=== PATIENT | male | born 1965 | race Caucasian/White ===

== ENCOUNTER 2019-04-19 12:25 | Emergency (ER) | payer BC ==
[2019-04-19 12:55] VITALS: BP 110/76
--- NOTE | 2019-04-19 13:15 | ER Report ---
History and Physical Time Seen By MD: 13:08 Hx. of Stated Complaint: PATIENT HAD MUCUS CYST IN THE LEFT LOWER LIP REMOVED 5 DAYS AGO. NOTICED THE STITCHES WERE NOT THERE AND THE WOUND IS OPEN AND LOOKS INFECTED. HPI/ROS CHIEF COMPLAINT: Open mouth HISTORY OF PRESENT ILLNESS: Patient is a 53-year-old male who is traveling from [place] originally he is from near [facility]. Earlier last week patient had surgery to remove a mucocele to his left lower lip. He had some dissolvable stitches placed and was doing well until today when he noticed the area seems to be somewhat inflamed and it appears that the stitches have fallen out. He has no purulent discharge in minimal pain. Tetanus shot was less than 5 years ago. He offers no other complaints. Allergies: Coded Allergies: No Known Drug Allergies (Unverified , 04/19/19) Home Meds Active Scripts Chlorhexidine Gluconate (Peridex) 0.12 % Mouthwash, 10 ML PO BID, #1 BOTTLE 0 Refills 10 mls by mouth, swish and spit twice per day for 7 days Prov:NIRU MELLO MD 04/19/19 Clindamycin Hcl (CLINDAMYCIN HCL) 300 Mg Capsule, 300 MG PO Q6H for 7 Days, #28 CAPSULE 0 Refills Prov:NIRU MELLO MD 04/19/19 Past Medical/Surgical History Recent surgery to remove mucocele Hx Substance Use Disorder: No Constitutional Vital Sign - Last 24 Hours 04/19/19 12:55 Temp 97.9 Pulse 53 Resp 16 B/P (MAP) 110/76 Pulse Ox 90 O2 Delivery Room Air Physical Exam General Appearance: Alert, no distress. Eyes: Pupils equal and round no pallor or injection. ENT, Mouth: Ears: Tympanic membranes are normal. Nose: No bleeding. Mouth: Mucous membranes are moist. Left lower lip shows a fissure area with some inflammatory changes and no evidence of abscess or purulent discharge. Throat: No erythema or exudates there is no tonsillar hypertrophy and uvula is midline. Musculoskeletal: Neck is supple non tender, no adenopathy. Medical Decision Making ED Course/Re-evaluation ED Course Plan at this time will be to place the patient on oral clindamycin for the next 7 days. Also recommend chlorhexidine mouthwash. Decision to Disposition Date: Apr 19, 2019 Decision to Disposition Time: 14:00 Depart Departure Latest Vital Signs Vital Signs Date Time Temp Pulse Resp B/P (MAP) Pulse Ox O2 Delivery O2 Flow Rate FiO2 04/19/19 12:55 97.9 53 16 110/76 90 Room Air Impression: Primary Impression: Mouth sore Condition: Improved Disposition: HOME OR SELF-CARE New Scripts Chlorhexidine Gluconate (Peridex) 0.12 % Mouthwash 10 ML PO BID, #1 BOTTLE 0 Refills 10 mls by mouth, swish and spit twice per day for 7 days Prov: NIRU MELLO MD 04/19/19 Clindamycin Hcl (CLINDAMYCIN HCL) 300 Mg Capsule 300 MG PO Q6H for 7 Days, #28 CAPSULE 0 Refills Prov: NIRU MELLO MD 04/19/19 Patient Instructions: Oral Mucositis (ED) NIRU MELLO MD Apr 19, 2019 13:15
[2019-04-19] MEDS ORDERED: CLIN300C99 PO (13:36)
[2019-04-19] MEDS ORDERED: CHLO473M14 PO (13:36)
== END 2019-04-19 13:45 | disposition home or self-care (01) ==
LOC: ER 13:09
DX: S00.502A Unspecified superficial injury of oral cavity, initial encounter (principal)
CPT/HCPCS: 99281